=== PATIENT | female | born 1930 | race Caucasian/White ===

== ENCOUNTER 2018-03-18 09:00 | Emergency (ER) | payer OTHER ==
[2018-03-18 09:08] VITALS: BP 119/98
--- NOTE | 2018-03-18 10:05 | EDPHY ---
General Time Seen by Provider: 03/18/18 09:44 Narrative: CHIEF COMPLAINT: Shingles to the "left thigh" HISTORY OF PRESENT ILLNESS: Patient presents with complaints of shingles pain x1 week. She had 1st says the shingles on the left side of her thigh, but then states on the right. She says that started approximately 1 week ago. She has difficulty remembering the details of this. It is very painful. She has no lesions elsewhere on her person. She has no headache, fever, chest pain, shortness of breath or cough. She presents with her friend at bedside. They live together. The friend states she was up all night complaining of pain. She went to an urgent care earlier this week, she was prescribed "two medications, one of them a cream. "They do not know the names of these but states that 1 of them is taken 3 times daily, and the cream is 2-3 times daily. She has no pain at this time with pain does increase at night. Able to ambulate. No trauma or injury. She had times exhibits difficulty providing history to me, and is supplemented by her friend at bedside. No other associated complaints or modifying factors. REVIEW OF SYSTEMS: Ten systems reviewed and are negative unless otherwise noted in the HPI PCP: None SPECIALISTS: None PAST MEDICAL HISTORY: Denies any history of formal diagnoses. PAST SURGICAL HISTORY: No recent surgeries. SOCIAL HISTORY: Nonsmoker. Lives here locally with her friend. She is originally from [place] and they are living here temporarily FAMILY HISTORY: Noncontributory EXAMINATION General Appearance: Alert, no distress. Well-developed well-nourished. Head: normocephalic, atraumatic Eyes: Bilateral arcus senilis. Pupils equal and round, no conjunctival pallor or injection ENT, Mouth: Mucous membranes moist. Uvula midline. Airway widely patent. There are no vesicular lesions anywhere on her face or nose. Neck: Normal inspection, supple, non-tender Respiratory: Lungs are clear to auscultation Cardiovascular: Regular rate and rhythm. No murmur Gastrointestinal: Abdomen is soft and nontender Back: non-tender, no bony abnormalities Neurological: Alert to person place and intermittently disoriented to time. At time she does not know the year and other times she does. Her strength is symmetric and she is fully ambulatory with steady gait and no focal deficits. Skin: Warm and dry. There is a erythematous rash with vesicular lesions centrally on the right lateral thigh extending to the right flank. This does not cross midline and is consistent with zoster. No secondary infection or bleeding. Extremities: Tenderness over the area of rash. Range of motion is symmetric in all limbs. Psychiatric: Mood and affect normal DIFFERENTIAL DIAGNOSES: Including but not limited to zoster, dermatitis, cellulitis MDM: 9:45 a.m. Right-sided shingles of 3-4 days duration. The patient and her friend at bedside report oral medication topical medication for that duration do not know the name of them. These were obtained from a [facility] pharmacy. She is confused regarding the exact details of the week and has no family members at bedside. I will ask for assistance with case management. 10:12 a.m. I have verified the patient's medications from [facility] pharmacy. She was prescribed bowel acyclovir 1 g 3 times daily for 7 days. She was prescribed triamcinolone 1% topical cream 3 times daily. I have informed her that she should stop the topical triamcinolone and not use this any further. I also told her she should continue the acyclovir as prescribed. 11:00 a.m. Patient has been visited by patient case manager. She feels the patient is lucid at this time and has no concern for the patient be discharged home with friend. I have re-evaluated the patient and agree with this. She is alert and oriented x3 at this time. She has minimal pain would like to go home. We discussed ibuprofen as 1st line of therapy for pain. I will provide a short prescription of Mcgee for pain relief should this worsen. She is to continue her acyclovir as previously prescribed and to discard the triamcinolone. ED precautions discussed. I provided the on-call primary care physician, and counseling case manager will help insure that she seen later this week. Discharged home stable condition. SUPERVISION: This patient was independently evaluated without direct involvement of or examination by the attending physician. - History Smoking Status: Former smoker - Objective Vital Signs: Initial Vital Signs Temperature (C) 98.2 F 03/18/18 09:06 Heart Rate 90 03/18/18 09:06 Respiratory Rate 18 03/18/18 09:06 Blood Pressure 119/98 H 03/18/18 09:06 O2 Sat (%) 92 03/18/18 09:06 O2 Delivery Mode Room Air Allergies/Adverse Reactions: No Known Allergies Allergy (Unverified 03/18/18 09:05) Home Medications: Medication Instructions Recorded Hydrocodone/APAP 5/325 [Mcgee 1 - 2 tab PO Q4H PRN #7 tab 03/18/18 5/325 (*)] Departure - Departure Disposition: Home, Routine, Self-Care Clinical Impression: Thigh shingles Condition: Good Instructions: Shingles (ED) Additional Instructions: 1. Medication as prescribed as needed for pain 2. ibuprofen 400 mg every 6-8 hours as needed for pain 3. Continue your previous prescription of bowel acyclovir 3 times daily Referrals: Audrey Romeo MD [Medical Doctor] - As per Instructions Prescriptions: Hydrocodone/APAP 5/325 [Mcgee 5/325 (*)] 1 - 2 tab PO Q4H PRN #7 tab PRN Reason: Pain, Moderate
--- NOTE | 2018-03-18 12:15 | ASDISCHSUM ---
Discharge Information Plan Status:Home with No Needs Medically Cleared to Leave: Discharge Date:03/18/2018 11:05 AM CM D/C Disposition:Home, Routine, Self-Care ADT D/C Disposition:Home, Routine, Self-Care Projected Discharge Date:03/18/2018 11:05 AM Transportation at D/C:Friend Discharge Delay Reason: Follow-Up Date:03/18/2018 11:05 AM Discharge Slot: Final Diagnosis: Placement Information Patient Contact Information Contact Name:SCHUYLERLITZY Relationship: Address: Home Phone: Work Phone: City: Alternate Phone: State/Zip Code: Email: Financial Information Financial Class:Medicare Primary Plan Desc:MEDICARE OUTPATIENT Primary Plan Number:[id number] Secondary Plan Desc:[place] [employer] [facility] [employer] Secondary Plan Number:[id number] Assessment Information [facility] CM Progress Note CM Note CM Note Notes: Pt presented to the ED for shingles x1week. Pt was accompanied by a friend, Berhane French ([phone]). Requested to speak to patient after ED Provider expressed concerns re: pt's cognitive status and her social situation. Per ED Provider, pt didn't know year it was and she also presented with other memory-loss, but pt has no diagnosis of dementia. Spoke w/pt without Berhane present. Pt states she and Berhane recently drove to [place] from [place] and they are hoping to find a place to live here permanently. Pt and Berhane are staying at a local hotel in the meantime. Pt states she has brother and a daughter who live outside of [facility] and that she keeps in close contact with them over the phone and that they're aware she has moved to [place] w/Berhane. Pt states she was in [place] caring for her elderly mother until she passed at 89 yrs old. Pt does seem to have some mild cognitive concerns or memory loss but for the most part is competent. Pt provided the on-call PCP Dr Audrey Romeo at [facility] ([phone]) and strongly encouraged her to follow-up with her this week. This CM called and left voicemail for Dr Rae's RN Clinical Coordinator, Ruby Webb ([phone]) to relay the need for pt getting a follow-up appt and possible need for further cognitive assessment. There were also concerns about giving pt narcotic pain meds since she wasn't currently in severe pain (but then also reported a 6 out of 10 level of pain and mentioned she woke up in the middle of the night due to pain) and was stating she didn't need pain medications, but her friend Berhane seemed to be insisting she be provided some. Berhane uses a cane to walk and reports having chronic back pain. Pt provided a small amount of pain medication for severe flare-ups but recommended to take Ibuprofen first. Pt states she will followup with Dr Romeo this week. CM available for further assistance if needed. Date Signed: 03/18/2018 12:13 PM Electronically Signed By:Emy Waite RN Intervention Information Intervention Type:Health Clinic Date of Service:03/18/2018 12:13 PM Patient Type:Emergency Room Staff Member:CATALINO Waite [place] Hours:0.25 Discipline:Cutting Inspector Severity: Comment: Intervention Type:Post Acute Communication Date of Service:03/18/2018 12:13 PM Patient Type:Emergency Room Staff Member:CATALINO Waite [place] Hours:0.25 Discipline:Cutting Inspector Severity: Comment:
== END 2018-03-18 11:05 | disposition home or self-care (01) ==
DX: B02.9 Zoster without complications (principal); Z87.891 Personal history of nicotine dependence